=== PATIENT | female | born 1975 | race Caucasian/White ===

== ENCOUNTER 2019-09-08 19:51 | Emergency (ER) | payer OTHER ==
[~2019-09-08] VITALS: Ht 165.1 cm; Wt 55.3 kg
[2019-09-08 20:10] VITALS: BP 128/89
[2019-09-08] MEDS ORDERED: ACETAMINOPHEN ES 500 MG TABLET ONE (20:26)
[2019-09-08] MEDS ORDERED: ONDANSETRON 4 MG TAB.RAPDIS ONE (20:26)
[2019-09-08] MEDS ORDERED: ACETAMINOPHEN ES 500 MG TABLET PO ONE (20:30)
[2019-09-08] MEDS ORDERED: ONDANSETRON 4 MG TAB.RAPDIS SL ONE (20:30)
== END 2019-09-08 21:01 | disposition home or self-care (01) ==
LOC: EDBD 19:53 → ER 19:53
DX: S39.012A Strain of muscle, fascia and tendon of lower back, initial encounter (principal); S19.80XA Other specified injuries of unspecified part of neck, initial encounter; V49.59XA Passenger injured in collision with other motor vehicles in traffic accident, initial encounter; Y93.89 Activity, other specified; Y92.488 Other paved roadways as the place of occurrence of the external cause; Y99.8 Other external cause status
CPT/HCPCS: 99283; Q0162

== ENCOUNTER 2020-10-16 15:45 | Emergency (ER) | payer OTHER ==
[~2020-10-16] VITALS: Ht 167.6 cm; Wt 57.2 kg
[2020-10-16 16:10] VITALS: BP 122/68
[2020-10-16] MEDS ORDERED: BENZ-13 PO (16:47)
[2020-10-16] MEDS ORDERED: BENZONATATE 100 MG CAPSULE PO PRN (17:00)
== END 2020-10-16 17:19 | disposition home or self-care (01) ==
LOC: ER 15:50
DX: U07.1 COVID-19 (principal)